=== PATIENT | male | born 2000 | race Caucasian/White ===

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

== ENCOUNTER → 2021-05-17 15:20 | Outpatient (CLI) | payer BC, SELFPAY ==
[2020-10-17 13:48] VITALS: BMI 42.9
--- NOTE | 2021-05-17 15:24 | RAD_ITS ---
STUDY: X-RAY - LUMBAR SPINE REASON FOR EXAM: Male, 20 years old. BACK PAIN TECHNIQUE: 3 view(s) of the lumbar spine were obtained. COMPARISON: Comparison is made with prior study dated 09/13/2016. FINDINGS: There is straightening of the normal lumbar lordosis. There is no substantial scoliosis. There is a normal alignment of the vertebrae. Normal vertebral bodies and endplates. Normal disc space heights. The soft tissue structures are unremarkable. RAD/Lumbar Spine 2 or 3 Views IMPRESSION: There is straightening of the normal lumbar lordosis. Electronically Signed: Dontrell Woodson MD at 15:53 EDT , Service support ,
== END ==
PROVIDERS: PCP Pediatrics; Referring Provider Pediatrics; Visit Provider Pediatrics
DX: M54.5 Low back pain (principal); G89.29 Other chronic pain
CPT/HCPCS: 72100

== ENCOUNTER 2021-07-13 08:30 | Outpatient (RCR) | payer BC, SELFPAY ==
[2020-10-17 13:48] VITALS: BMI 42.9
--- NOTE | 2021-06-05 12:32 | HP.PTEVAL ---
Patient's Visit Information RAJ KELLEY is a 20 year old M referred to Physical Therapy by Dr. 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 Date of Evaluation: 06/05/21 Physical Therapist: Paulette Galvan PT, Cert MDT - Visit Plan Frequency: 2-3x /Week Duration: 4-6 Weeks Plan: *HUE SHLD PROBLEMS*. POSTURE CORRECTION/STRENGTHENING, INSTRUCTION IN APPROPRIATE BODY MECHANICS AND ACTIVITY MODIFICATIONS. DLS STARTING WITH A NEUTRAL SPINE PROGRESSING ROM TOLERATED. HUE LE ROM, STRETCHING AND STRENGTHENING. HEP INSTRUCTION. 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 A LOT OF BENDING, LIFTING AND TWISTING. LIFTING UP TO 5 LBS FREQUENTLY. DOES VERY HEAVY PUSHING AND PULLING AT ABOUT CHEST LEVEL. CURRENTLY NOT OFF WORK FOR THIS. WORKS 3 DAYS IN A ROW. HAS WORKED AT THIS COMPANY FOR ABOUT 3 YEARS. LIVES WITH PARENTS. Disability: NO. Present symptoms: HUE LOW BACK AREA BUT NOT DOWN EITHER LEG. Present since: 2014. Pain Scale: WORSE 6/10, LEAST 1/10. Currently: 02/25. 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 OFF OF FOOTBALL FOR TWO WEEKS AND IT WOULD COME AND GO. PAIN HAS BEEN GETTING CONTINUOUSLY GETTING WORSE FOR THE LAST MONTH. THIS IS THE MOST CONSTANT IT HAS BEEN. Symptoms at onset: LOW BACK PAIN. Worse: WORK, SNEEZING, BENDING DOWN AND COMING BACK UP IT TWINGES, PUTTING SOCKS ON, GETTING OUT OF CAR, GETTING UP FROM SITTING. THE TWINGES SEEM RANDOM. Better: HOT TUB HELPS A LITTLE BIT, IBUPROFEN. Disturbed sleep: NO. 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 NO PT ON LOW BACK. NO BACK SURGERY. NO BACK INJECTIONS. Coughing/sneezing/straining: POSTIIVE. Gait: BACK FEELS STIFF. Difficulty initiating urinatin: NO. Accidents: NO. Unexplained weight loss: NO. Imaging: RECENT LOW BACK X-RAY THAT IS NORMAL PER PATIENT REPORT. PMH/Recent major surgery: RIGHT SHLD SURGERY. L ROTATOR CUFF UNREPAIRED TEAR. - Objective Sitting/Standing Posture: POOR. Lordosis: NORMAL. Lateral shift: NO. Relevant shift: N/A. Active Correction of posture: NE. Other Observations: INDEP GAIT AND TRANSFERS INTO PT WITH NO GROSS DEVIATIONS NOTED. Motor deficit: HUE LE'S 5/5 WITH MMT'ING. Sensory deficit: HUE LE LIGHT TOUCH SENSATION APPEARS INTACT AND SYMMETRICAL. ROM deficit: TIGHT HUE LE HIP FLEXORS, HS'S AND GASTROC SOLEUS COMPLEX'S. Reflexes: UNABLE TO ELICIT HUE LE DTR'S. Dural Signs: NEGATIVE HUE LE'S. Lumbar mvmt loss: flex - NIL. ext - MOD. R SG - MIN. L SG - NIL. BACK EXT ROM TESTING PRODUCES C/O CENTRAL LBP. C/O L LBP WITH RIGHT SG TESTING - LIKE A PINCH. REPEATED RIGHT SG TESTING - NW. REPEATED LEFT SG TESTING - NE. Core strength: POOR. Palpation: NO ACUTE LUMBAR TENDERNESS. TREATMENT: NEUROMUSCULAR REEDUCATION - RETRAINING OF MVMT AND POSTURE FOR SITTING, LYING AND STANDING ACTIVITIES. - Goals Goal 1:: DECREASE C/O LOW BACK PAIN Goal Time Frame: 4-6 Weeks Goal 2:: IMPROVE LIFTING, STANDING, AND WORK/HOMEMAKING FUNCTION Goal Time Frame: 4-6 Weeks Goal 3:: INSTRUCT IN PROPHYLAXIS Goal Time Frame: 4-6 Weeks - Anticipated Interventions Patient/Client Instruction: Educate patient on: Condition, Plan of Care, Risk Factors For the Purpose of:: To improve self management Therapeutic Exercise to Include: Strength training, Body mechanics, Postural training, Flexibilty training, Neuromotor development, In an aquatic setting, Dynamic Lumbar Stabilization For the Purpose of:: To decrease pain, To improve muscle performance and motor function, To increase tolerance to activity/condition/position, To improve ability of physical actions for home/community/work/leisure TENS: Yes IF ES: Yes Cryotherapy (ice pack, ice massage): Yes Thermo therapy (hot pack): Yes Ultrasound (thermal/non thermal): Yes For the Purpose of:: To decrease pain, To improve nutrient delivery to tissue Thank you for the opportunity to evaluate your patient. For Medicare and Medicare HMO plans, please review the plan of care and approve it. It will need to be FAXED BACK to us at [phone] for Medicare purposes. For Medicare only, by signing this I certify the plan of care. Please let me know if there are questions or concerns regarding this plan of care. Physician Signature: Date:
--- NOTE | 2021-07-13 09:01 | HP.PTREVAL ---
Dr. 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 Please see the progress note below for an update on the physical therapy plan of care! Subjective: I FEEL STRONGER. I ACTUALLY WENT A WHOLE WEEKEND WITHOUT DISCOMFORT ONCE AND THEN LAST WEEKEND I HAD TO DO A JOB I DON'T NORMALLY DO AND IT MESSED MY BACK UP SO BAD. EVER SINCE THEN PATIENT REPORTS HAVING INCREASED PAIN. THE INCREASED PAIN HAPPENED AT WORK 07/13/21 AND CALLED OFF WORK AND CALLED HIS DOCTOR BUT HASN'T HAD A RESPONSE FROM HIS DOCTORS OFFICE PER PATIENT REPORT. Objective/Function: PATIENT WAS SEEN TODAY FOR RE-ASSESSMENT OF PROGRESS TOWARD THE SET PT GOALS AND THE NEED FOR FURTHER PHYSICAL THERAPY VS READINESS FOR DISCHARGE. PATIENT HAS HAD A RECENT FLARE UP ABOUT A WEEK AGO AT WORK. HE WAS MAKING SLOW PROGRESS TOWARD THE SET PT GOALS PRIOR TO THAT. HE IS REPORTING INCREASED PAIN TODAY WITH LUMBAR ROM TESTING BUT OVER-ALL THERE ARE NO SIGNIFICANT OBJECTIVE CHANGES SINCE INITIAL EVAL. UPON EXAM TODAY: HUE LE DURAL TESTING IS NEGATIVE. Lumbar mvmt loss: flex - NIL. ext - MOD. R SG - MIN. L SG - NIL. BACK EXT ROM TESTING PRODUCES C/O CENTRAL LBP. PATIENT ALSO HAS C/O INCREASED LBP WITH HUE SG TESTING TODAY. Core strength: POOR. Palpation: NO ACUTE LUMBAR TENDERNESS. Plan Plan: HOLD PT PENDING PHYSICIAN RE-ASSESSMENT. PATIENT IS AGREEABLE. Balance/Gait/Functional tests - Balance/Special Test Scores Oswestry Low Back Score: 5 Goals Goal 1:: DECREASE C/O LOW BACK PAIN Goal Time Frame: 4-6 Weeks Goal Progress: Not Progressing Goal 2:: IMPROVE LIFTING, STANDING, AND WORK/HOMEMAKING FUNCTION Goal Time Frame: 4-6 Weeks Goal Progress: Not Progressing Goal 3:: INSTRUCT IN PROPHYLAXIS Goal Time Frame: 4-6 Weeks Goal Progress: Not Progressing Anticipated Interventions Patient/Client Instruction: Educate patient on: Condition, Plan of Care, Risk Factors For the Purpose of:: To improve self management Therapeutic Exercise to Include: Strength training, Body mechanics, Postural training, Flexibilty training, Neuromotor development, In an aquatic setting, Dynamic Lumbar Stabilization For the Purpose of:: To decrease pain, To improve muscle performance and motor function, To increase tolerance to activity/condition/position, To improve ability of physical actions for home/community/work/leisure TENS: Yes IF ES: Yes Cryotherapy (ice pack, ice massage): Yes Thermo therapy (hot pack): Yes Ultrasound (thermal/non thermal): Yes For the Purpose of:: To decrease pain, To improve nutrient delivery to tissue Please do not hesitate to contact me at [phone] by phone or if you have questions or concerns regarding this new plan of care! Sincerely, Paulette Galvan, PT, Cert MDT
--- NOTE | 2021-09-26 13:35 | HP.PT.NRP ---
RAJ KELELY was seen in my office for initial evaluation on 06/05/21. The following Plan of Care was established for this patient: Initial Frequency: 2-3x /Week Initial Duration: 4-6 Weeks Patient/Client Instruction: Educate patient on: Condition, Plan of Care, Risk Factors For the Purpose of:: To improve self management Therapeutic Exercise to Include: Strength training, Body mechanics, Postural training, Flexibilty training, Neuromotor development, In an aquatic setting, Dynamic Lumbar Stabilization For the Purpose of:: To decrease pain, To improve muscle performance and motor function, To increase tolerance to activity/condition/position, To improve ability of physical actions for home/community/work/leisure TENS: Yes IF ES: Yes Cryotherapy (ice pack, ice massage): Yes Thermo therapy (hot pack): Yes Ultrasound (thermal/non thermal): Yes For the Purpose of:: To decrease pain, To improve nutrient delivery to tissue This patient was last seen in our office 07/13/21. Pertinent comments regarding their Physical therapy will appear below: This patient has not returned to Physical Therapy and is appropriate to return to MD for further follow-up as needed. At this point I will be discontinuing this patient from physical therapy. I would be happy to see this patient again in the future if found appropriate by the physician. Thank you! Paulette Galvan, PT, Cert MDT Balance/Gait/Functional tests - Balance/Special Test Scores Oswestry Low Back Score: 5
== END 2021-07-13 19:00 | disposition home or self-care (01) ==
LOC: PT 08:30
PROVIDERS: PCP Pediatrics; Visit Provider Pediatrics
DX: M54.5 Low back pain (principal)
CPT/HCPCS: 97014; 97110; 97112; 97162; 97164; G0283

== ENCOUNTER → 2021-08-30 08:54 | Outpatient (CLI) | payer BC, SELFPAY ==
--- NOTE | 2021-08-30 09:04 | MRI_ITS ---
STUDY: MRI LUMBAR SPINE WITHOUT CONTRAST REASON FOR EXAM: Male, 20 years old. BACK PAIN TECHNIQUE: Standardized fat and water weighted pulse sequences were obtained in the sagittal and axial planes. COMPARISON: None FINDINGS: T12-L1: Normal endplates. Normal disc height, hydration and morphology. Normal bilateral facet joints. Normal central canal and bilateral lateral recesses. Normal bilateral intervertebral neural foramina. Normal lumbar lordosis. There is no substantial scoliosis. Normal conus medullaris that terminates at the L1 L1-2: Normal endplates. Normal disc height, hydration and morphology. Normal bilateral facet joints. Normal central canal and bilateral lateral recesses. Normal bilateral intervertebral neural foramina. L2-3: Normal endplates. Normal disc height, hydration and morphology. Normal bilateral facet joints. Normal central canal and bilateral lateral recesses. Normal bilateral intervertebral neural foramina. L3-4: Normal endplates. Normal disc height, hydration and morphology. Normal bilateral facet joints. Normal central canal and bilateral lateral recesses. Normal bilateral intervertebral neural foramina. L4-5: There is minimal disc space narrowing and endplate spondylosis. There is no significant disc herniation, central canal or foraminal stenosis. Mild facet arthropathy. L5-S1: There is moderate disc space narrowing and endplates spondylosis and edema. Mild disc bulge and facet arthropathy without significant central canal stenosis. Mild right and mild left foraminal stenosis. Normal visualized sacral ala. MRI/Spine Lumbar (Routine) IMPRESSION: L5/S1: Mild disc bulge Electronically Signed: Trinidad Cano MD at 8:16 EDT Tel , Service support ,
== END ==
PROVIDERS: PCP Pediatrics
DX: M54.16 Radiculopathy, lumbar region (principal)
CPT/HCPCS: 72148

== ENCOUNTER 2022-02-21 08:17 | Day surgery (SDC) | payer BC, SELFPAY ==
[2022-02-21 08:40] VITALS: BP 145/85; PULSE 84; RESP 18; TEMP 36.4; O2SAT 100; BMI 42.7
[2022-02-21] MEDS: Lactated Ringers 1,000 ML 15 ML IV (08:55)
--- NOTE | 2022-02-21 10:01 | HP.PCM_ITS ---
History and Physical Date of Admission: 02/21/22 Visit Reasons: PILONIDAL RE-CHECK Chief Complaint: pilonidal re-check Bottle Feeder Required: No Is patient in pain?: No Allergies No Known Allergies Allergy (Verified 02/01/22 09:51) Medications amoxicillin 875 mg-potassium clavulanate 125 mg tablet 1 tab PO BID #10 tab 01/25/22 [Rx Confirmed 02/01/22] PFSH Medical History Asthma DJD (degenerative joint disease), lumbar Pilonidal cyst without abscess Pilonidal cyst without infection Surgical History (Updated 02/01/22 @ 09:51 by May Saturday) History of arthroscopy of right shoulder (~2015) History of shoulder surgery (~2015) History of surgical removal of pilonidal cyst Family History Father Diabetes Heart disease Hypertension Cancer skin Mother Thyroid disorder Heart disease Hypertension Mitral valve prolapse Social History Smoking Status: Never smoker HPI HPI HPI: RAJ KELLEY, is a 21 M who presents to the office today for surgical follow-up. On January 25, 2022 I performed a incision and drainage of a pilonidal cyst. Previously I had seen the patient October 17, 2020 for pilonidal cyst without infection at that time. After his recent incision and drainage I placed him on Augmentin 875 mg twice daily for 5 days. He is returning today for I&D follow-up as well as potential evaluation for future definitive surgery. He works at [employer]. Body habitus is 290 pounds with a BMI of 42.9 which will complicate surgery. The patient mother stated that he actually improved quite quickly. The drainage lasted for several days but the subsequently has ceased. He has been able to return to work. This is the first infection that he has had. Exam Const General: cooperative, comfortable and no acute distress Nutritional Appearance: obese [facility] Head: normal to inspection Eyes General: appearance normal, both eyes and all related structures Chest Chest palpation & inspection: normal inspection of the chest Resp Effort & Inspection: normal respiratory effort Auscultation: clear to auscultation bilaterally Cardio Rate: regular rate Rhythm: regular rhythm GI Palpation: soft Skin Other: Superior coccygeal area there is a small eschar in the erythema and induration from the previous abscess markedly improved. There are multiple punctate pilonidal sinus sites extending for 6 cm inferiorly. Multiple findings consistent with ingrown hair Neuro General: patient alert and patient awake Extrem General: no calf tenderness Psych Appearance: grossly normal Assessment and Plan Assessment and Plan (1) Infected pilonidal cyst: Status: Acute Plan - Dr. Reji Dickson MD: Fortunately the patient responded well to incision drainage and oral antibiotic therapy for his infected pilonidal cyst. He is complicated extensive pilonidal disease. He has a significant amount of hairbearing skin and a significant amount of ingrown hair. His cleft is moderately deep. I have discussed with the patient and his mother surgical treatment options. I would recommend a cleft lift procedure. In great to entail I have discussed technique benefit risk complication alternatives including trying to get the incision off the midline reduce the cleft provide drainage if required. He is aware that he will need to take some time off from [employer]. He is aware unfortunately there are no guarantees of success. He will need to address the hairbearing skin with clipping or shaving or a depilatory agent or even possible future laser therapy. He has had an opportunity to ask and have questions answered. He will schedule procedure at his discretion. Reji Dickson M.D., F.A.C.S. I have re-examined the patient. There are no clinical changes since date of exam. Reji Dickson M.D., F.A.C.S.
--- NOTE | 2022-02-21 10:02 | EX.PCM.DISCH ---
Discharge Instructions Procedure General Surgery Diet Discharge Diet: Light diet - advance as tolerated (if you have questions about your diet instructions, please talk to you doctor.) Activity Discharge Activity: May Not Drive (for 3-5 days or while taking narcotic pain medicine.) Lifting Restrictions: 10 pounds Dressing / Incision Call your doctor if your incision/area has: Continuous Slow Oozing, Sudden Increased Bleeding, Increased Pain/ Swelling, Increased Redness, Foul Smelling Discharge and - Call your doctor if you observe: Fever of 101 or Higher Suture Line Care: Avoid Pulling/Pushing and Avoid Pinching/Bending Additional Dressing/Incision Instructions:: You may change the dressing daily. Cleanse any drain site with a Q-tip and peroxide. Cleanse along the suture line with the same. Apply dry gauze and tape. Keep this area otherwise clean and dry until after the drain is removed. Follow Up Care Please Follow Up With: Reji Dickson MD When: Call [phone] to make an appointment to be seen in about 7 days. Test Results: Test results from this visit will be discussed in further detail at your follow-up appointment, if applicable. Discharge Plan Admission Attending Provider: Reji Dickson Primary Care Provider: Lorie Henriquez Discharge Orders/Prescriptions Prescriptions: No Action albuterol sulfate 90 mcg/actuation Hfa Aerosol Inhaler 1 puff INHALATION PRN PRN (Reason: ASTHMA) RF: 0
--- NOTE | 2022-02-21 10:30 | PILCYST_PTH ---
PATIENT: RAJ KELLEY LOC: [facility] [place] U#:[id number] AGE/SX: 21/M ROOM: RE02/21/[address]: Dr. Reji Dickson MD : 2000 BED: DIS: 02/21/2022 SPEC #: [id number] RECD: 02/21/22 12:49 STATUS: THOMAS EVERETTIwona #: [id number] YVETTE: 02/21/22 10:[address]: Reji Dicksno DEPT: SURGICAL PATHOLOGY RECD BY: Soheila Escobedo ENTERED: 02/22/22 09:00 SP TYPE: Pilonidal OTHR DR: Dr. Lorie Henriquez MD Tissues: PILONIDAL TISSUE Procedures: Surgery Specimen Level III HEADER OPERATION: Extensive pilonidal cystectomy PRE-OP DIAGNOSIS: Infected pilonidal cyst TISSUE SUBMITTED: Pilonidal cyst MICROSCOPIC DIAGNOSIS Pilonidal cyst, excision: Consistent with pilonidal cyst with associated acute and chronic inflammation. AM:bong 02/23/2022 MICROSCOPIC DESCRIPTION Slides are reviewed. GROSS DESCRIPTION Received in fixative is one container labeled with the patient's name and designated pilonidal cyst. The specimen consists of an ellipse of pink-gonzalez soft tissue with attached yellow fatty tissue. The specimen measures 11 x 6 x 2.7 cm. No cutaneous lesions are identified. Serial sections reveal a cyst measuring 3 x 1 cm. The specimen is totally submitted in one cassette. / AM:bong 02/22/2022 TC:2 CPT: 27413
[2022-02-21] MEDS: Bupivacaine Mpf 0.5% 30 ML VIAL (11:46)
--- NOTE | 2022-02-21 11:50 | PCM.OPRPT ---
Problems Associated Problem List Diagnoses (1) Pilonidal cyst without infection: Report of Operation Date of Procedure: 02/21/22 Pre-Operative Diagnosis: History of infected pilonidal cyst/abscess with multiple sinus tracts Post-Operative Diagnosis: Same Surgery/Procedure Performed:: Cleft lift pilonidal cystectomy, extensive, 17 cm long excision Description of Surgical Findings:: Timeout informed consent was obtained. 21-year-old gentleman was taken to the operating placed prone on the table after he had undergone general endotracheal ovation anesthesia. Careful shoulder rolls knee padding were performed. The buttock was gently taped using skin prep. The proximal sacrococcygeal area was sterilely prepped and draped with Betadine. A cleft lift procedure was performed during a somewhat of a vertical elliptical incision so as to remove the previous incision and drainage site and multiple pilonidal sinuses. Methylene blue dye was injected into the pilonidal sinuses to assure complete removal. The right side of ellipse was performed first and then I elevated the tissue to the right so as to move the midline incision leftward. I undermined approximately 5 to 6 cm to the right. Safety subcutaneous tissues. I then performed the left side of the lips to ensure removal of all of the sinus tracts then used electrocautery deeply to remove the deep portion of the tissue and elevate the dewey cleft. Completely remove the tissue felt that I got completely around all of the blue dye markings. I then approximated the tissue in layers using interrupted 3-0 Vicryl. A stab incision was made superior and left of the wound and a 10 round drain was exited. Was short in length and placed down to the subcutaneous tissues and it was secured to skin with 3-0 nylon. I then further secured in layers the defect area proximally subdermal and subcutaneous tissues were possible to try to ablate the space. Used simple and mattress sutures of 3-0 nylon to approximate skin edges. Very nice approximation was achieved elevating the previous defect and moving the incision to the left of the midline. Sterile dressings were applied. Sponge instrument needle counts were reported to the surgeon to be correct. The length of the extensive excision was 17 cm. Sterile dressings applied. Sponge instrument needle counts were reported to the surgeon to be correct. 30 cc of 0.5% Marcaine was used as a local anesthetic and the tissues surrounding the excision was anesthetized at the completion. Specimen pilonidal abscess with multiple sinus tracts. Drains 10 round REYES drain. Blood loss minimal. Reji Dickson M.D., F.A.C.S. Surgeon: Reji Dickson Type of Anesthesia: General and Local Anesthesiologist: Reji Rivera
[2022-02-21 12:15] VITALS: BP 142/90; BP 145/85; BP 151/98; PULSE 97; PULSE 98; RESP 16; TEMP 36.2; O2SAT 95; O2SAT 98
[2022-02-21 12:30] VITALS: BP 137/84; BP 145/85; PULSE 77; RESP 16; O2SAT 94
[2022-02-21 12:45] VITALS: BP 137/84; BP 145/85; PULSE 74; RESP 16; O2SAT 96
[2022-02-21 12:53] VITALS: BP 143/84; BP 145/85; PULSE 85; RESP 16; TEMP 36.1; O2SAT 94
[2022-02-21 13:33] VITALS: BP 145/85; BP 147/91; PULSE 69; RESP 18; TEMP 36.4; O2SAT 97
--- NOTE | 2022-02-21 13:34 | SUR.PHASEII ---
Dr. Dickson in room to check on pt, Dr. Dickson made aware of pt vitals and voided, Dr. Dickson gave ok for d/c
== END 2022-02-21 23:59 | disposition home or self-care (01) ==
LOC: SDC 08:21 → AC 08:21
PROVIDERS: PCP Pediatrics; Referring Provider Surgery; Visit Provider Surgery
PROC: (CPT 11771; principal; 2022-02-21 10:05)
DX: L05.01 Pilonidal cyst with abscess (principal); Z68.41 Body mass index [BMI] 40.0-44.9, adult; E66.9 Obesity, unspecified; J45.909 Unspecified asthma, uncomplicated
CPT/HCPCS: 11771; 88304; J7120; J2405; Q9968

== ENCOUNTER → 2022-05-22 | Outpatient (CLI) | payer BC, SELFPAY ==
--- NOTE | 2022-05-22 11:43 | RAD_ITS ---
STUDY: X-RAY - LEFT ANKLE REASON FOR EXAM: Male, 21 years old. ANKLE PAIN TECHNIQUE: 3 view(s) of the ankle. COMPARISON: None. FINDINGS: Normal visualized distal tibia and fibula. Normal medial and lateral malleoli. Normal tibiotalar articulation and ankle mortise. Normal visualized talus and calcaneus. The visualized subtalar, talonavicular, calcaneocuboid and tarsal articulations are normal. The soft tissue structures are unremarkable. RAD/Ankle min 3 Views IMPRESSION: Normal x-ray examination of the ankle. Electronically Signed: Dontrell Woodson MD at 12:10 EDT ,
== END | disposition home or self-care (01) ==
LOC: MTRAD 11:41
PROVIDERS: PCP Pediatrics; Referring Provider Pediatrics; Visit Provider Pediatrics
DX: M25.572 Pain in left ankle and joints of left foot (principal)
CPT/HCPCS: 73610